=== PATIENT | female | born 1955 | race Hispanic/Latino ===

== ENCOUNTER → 2017-06-28 | Outpatient (CLI) | payer OTHER | END | disposition home or self-care (01) | LOC: RAH 08:58 | PROVIDERS: ATTEND Family Medicine | DX: Z12.31 Encounter for screening mammogram for malignant neoplasm of breast (principal) | CPT/HCPCS: 77067 ==

== ENCOUNTER → 2017-12-22 | Outpatient (CLI) | payer OTHER | END | disposition home or self-care (01) | LOC: OIH 13:25 | PROVIDERS: ATTEND Internal Medicine | DX: M19.012 Primary osteoarthritis, left shoulder (principal); M19.011 Primary osteoarthritis, right shoulder | CPT/HCPCS: 73030 ==

== ENCOUNTER 2017-12-29 19:37 | Emergency (ER) | payer OTHER ==
[2017-12-29] MEDS ORDERED: DiphenhydrAMINE HCL 50 MG/ML VIAL ONE (20:26)
[2017-12-29] MEDS ORDERED: SODIUM CHLORIDE 0.9% 1000ML 1,000 ML IV ONE (20:26)
[2017-12-29] MEDS ORDERED: ONDANSETRON HCL 4 MG/2 ML VIAL ONE (20:26)
[2017-12-29 20:33] LABS: EOSINOPHILS % (AUTO) 1.1 % (0.0-8.0); HEMATOCRIT 45.8 % (36-48); LYMPHOCYTES % (AUTO) 18.3 % (21.0-51.0); MEAN CORPUSCULAR HEMOGLOBIN 29.8 pg (27.0-33.0); MEAN CORPUSCULAR HGB CONC 34.7 g/dL (32.0-36.0); MEAN CORPUSCULAR VOLUME 85.9 fL (79-99); NEUTROPHILS % (AUTO) 72.6 % (40.0-77.0); NUCLEATED RED BLOOD CELLS 0.1 % (0.0-0.19); PLATELET COUNT (AUTO) 205 K/uL (130-400); RED BLOOD CELL COUNT(AUTO) 5.33 MIL/uL (4.00-5.50); RED CELL DISTRIBUTION WIDTH 14.3 % (11.0-15.5); WHITE BLOOD COUNT (AUTO) 8.3 K/uL (4.8-10.8)
[2017-12-29 20:42] LABS: POTASSIUM 3.5 mmol/L (3.5-5.1)
[2017-12-29 20:47] LABS: ALBUMIN 4.2 g/dL (3.5-5.0)
[2017-12-29 20:52] LABS: APPEARANCE,URINE Clear (CLEAR); BILIRUBIN,URINE Negative (NEGATIVE); COLOR,URINE Yellow (YELLOW); GLUCOSE, URINE (UA) 250 mg/dL (NEGATIVE); KETONES,URINE Trace mg/dL (NEGATIVE); LEUKOCYTE ESTERASE ,URINE Trace (NEGATIVE); NITRATE,URINE Negative (NEGATIVE); OCCULT BLOOD,URINE Negative (NEGATIVE); PH,URINE 6.5 (5.0-8.0); PROTEIN,URINE Negative (NEGATIVE)
[2017-12-29 21:01] LABS: BACTERIA,URINE Rare /HPF (None Seen); RBC,URINE 0-1 /HPF (0-1); SQUAMOUS EPITHELIAL CELL,UR Few /HPF (0-2)
[2017-12-29 21:02] LABS: MUCUS,URINE Rare LPF (None Seen); YEAST,URINE BUDDING Rare /HPF (None Seen)
[2017-12-29 21:03] LABS: HYALINE CASTS, URINE 0-1 /LPF (0-1 /LPF)
== END 2017-12-29 23:54 | disposition home or self-care (01) ==
LOC: EDH 19:37
DX: E86.9 Volume depletion, unspecified (principal); E87.6 Hypokalemia; H81.399 Other peripheral vertigo, unspecified ear; E11.9 Type 2 diabetes mellitus without complications; I10 Essential (primary) hypertension; E78.5 Hyperlipidemia, unspecified; Z90.49 Acquired absence of other specified parts of digestive tract; Z90.710 Acquired absence of both cervix and uterus; Z88.0 Allergy status to penicillin; Z88.8 Allergy status to other drugs, medicaments and biological substances
CPT/HCPCS: 36415; 80053; 81001; 84484; 85025; 93005; 96361; 96374; 96375; 99284; J1200; J2405; J7030

== ENCOUNTER → 2018-06-06 | Outpatient (CLI) | payer OTHER, MEDICARE ==
[~2018-06-06] MED LIST: REGADENOSON 0.4 MG/5 ML PF SYG IVP SCH
== END | disposition home or self-care (01) ==
LOC: RAH 08:53
PROVIDERS: ATTEND Family Medicine
DX: I11.0 Hypertensive heart disease with heart failure (principal); I42.9 Cardiomyopathy, unspecified; I50.9 Heart failure, unspecified
CPT/HCPCS: 78452; 93017; 96374; A9500 ×2; J2785

== ENCOUNTER → 2018-06-13 | Outpatient (CLI) | payer OTHER, MEDICARE | END | disposition home or self-care (01) | LOC: RAH 09:49 | PROVIDERS: ATTEND Family Medicine | DX: I10 Essential (primary) hypertension (principal); I42.9 Cardiomyopathy, unspecified | CPT/HCPCS: 71046; 93306 ==

== ENCOUNTER → 2018-06-29 | Outpatient (CLI) | payer OTHER, MEDICARE | END | disposition home or self-care (01) | LOC: RAH 08:18 | PROVIDERS: ATTEND Family Medicine | DX: Z12.31 Encounter for screening mammogram for malignant neoplasm of breast (principal) | CPT/HCPCS: 77067 ==

== ENCOUNTER → 2018-12-13 | Outpatient (CLI) | payer OTHER, MEDICARE ==
[~2018-12-13] MED LIST changes: +IOHEXOL-350 75 ML VIAL IV ONE; -REGADENOSON 0.4 MG/5 ML PF SYG IVP SCH
== END | disposition home or self-care (01) ==
LOC: RAH 09:48
PROVIDERS: ATTEND Family Medicine
DX: N28.1 Cyst of kidney, acquired (principal); N20.0 Calculus of kidney; M47.815 Spondylosis without myelopathy or radiculopathy, thoracolumbar region; Z80.51 Family history of malignant neoplasm of kidney
CPT/HCPCS: 74170; Q9967

== ENCOUNTER → 2019-07-24 | Outpatient (CLI) | payer OTHER, MEDICARE | END | disposition home or self-care (01) | LOC: RAH 15:04 | PROVIDERS: ATTEND Family Medicine | DX: Z12.31 Encounter for screening mammogram for malignant neoplasm of breast (principal); N64.89 Other specified disorders of breast | CPT/HCPCS: 77067 ==

== ENCOUNTER → 2019-08-12 | Outpatient (CLI) | payer OTHER, MEDICARE | END | disposition home or self-care (01) | LOC: RAH 07:31 | PROVIDERS: ATTEND Family Medicine | DX: N28.1 Cyst of kidney, acquired (principal); J98.11 Atelectasis; Z90.710 Acquired absence of both cervix and uterus; Z90.49 Acquired absence of other specified parts of digestive tract | CPT/HCPCS: 74178; Q9967 ==

== ENCOUNTER 2020-07-01 12:21 | Emergency (ER) | payer OTHER, MEDICARE ==
[2020-07-01 13:09] LABS: BASOPHILS % (AUTO) 0.4 % (0.0-5.0); EOSINOPHILS % (AUTO) 1.7 % (0.0-8.0); HEMATOCRIT 42.3 % (36-48); LYMPHOCYTES % (AUTO) 20.2 % (21.0-51.0); MEAN CORPUSCULAR HEMOGLOBIN 27.6 pg (27.0-33.0); MEAN CORPUSCULAR HGB CONC 32.9 g/dL (32.0-36.0); MEAN CORPUSCULAR VOLUME 84.1 fL (79-99); MONOCYTES % (AUTO) 7.8 % (3.0-13.0); NEUTROPHILS % (AUTO) 69.7 % (40.0-77.0); PLATELET COUNT (AUTO) 136 K/uL (130-400); RED BLOOD CELL COUNT(AUTO) 5.03 MIL/uL (4.00-5.50); RED CELL DISTRIBUTION WIDTH 12.9 % (11.0-15.5); WHITE BLOOD COUNT (AUTO) 5.4 K/uL (4.8-10.8)
[2020-07-01 13:22] LABS: CREATININE 0.9 mg/dL (0.5-1.5); POTASSIUM 4.2 mmol/L (3.5-5.1)
[2020-07-01 13:28] LABS: ALBUMIN 3.4 g/dL (3.5-5.0); BILIRUBIN,TOTAL 0.7 mg/dL (0.2-1.0); TOTAL PROTEIN, SERUM 6.6 g/dL (6.0-8.3)
[2020-07-01 13:35] LABS: B-TYPE NATRIURETIC PEPTIDE 497 pg/mL (0-100)
[2020-07-01 14:17] LABS: APPEARANCE,URINE Clear (CLEAR); BILIRUBIN,URINE Negative (NEGATIVE); COLOR,URINE Yellow (YELLOW); GLUCOSE, URINE (UA) 250 mg/dL (NEGATIVE); KETONES,URINE Negative (NEGATIVE); LEUKOCYTE ESTERASE ,URINE Negative (NEGATIVE); NITRATE,URINE Negative (NEGATIVE); OCCULT BLOOD,URINE Negative (NEGATIVE); PROTEIN,URINE Negative (NEGATIVE); UROBILINOGEN,URINE 0.2 mg/dL (0.2-1.0)
[2020-07-01] MEDS ORDERED: FUROSEMIDE 10 MG/ML 2ML VIAL ONE (15:20)
== END 2020-07-01 17:58 | disposition home or self-care (01) ==
LOC: EDH 12:21
DX: I11.0 Hypertensive heart disease with heart failure (principal); I50.9 Heart failure, unspecified; R06.00 Dyspnea, unspecified; E11.9 Type 2 diabetes mellitus without complications; E78.5 Hyperlipidemia, unspecified; Z86.73 Personal history of transient ischemic attack (TIA), and cerebral infarction without residual deficits; Z88.0 Allergy status to penicillin; Z88.6 Allergy status to analgesic agent
CPT/HCPCS: 36415; 71045; 80053; 81003; 82550; 83880; 84484; 85025; 85378; 93005; 96374; 99285; J1940

== ENCOUNTER → 2020-08-24 | Outpatient (CLI) | payer OTHER, MEDICARE | END | disposition home or self-care (01) | LOC: RAH 09:07 | PROVIDERS: ATTEND Family Medicine | DX: Z12.31 Encounter for screening mammogram for malignant neoplasm of breast (principal); Z00.01 Encounter for general adult medical examination with abnormal findings | CPT/HCPCS: 77067 ==

== ENCOUNTER 2021-04-22 07:15 | Day surgery (SDC) | payer OTHER, MEDICARE ==
[2021-04-20 13:27] VITALS: BP 148/72
[2021-04-20 14:42] LABS: BASOPHILS % (AUTO) 0.5 % (0.0-5.0); EOSINOPHILS % (AUTO) 1.7 % (0.0-8.0); HEMATOCRIT 44.8 % (36-48); LYMPHOCYTES % (AUTO) 12.4 % (21.0-51.0); MEAN CORPUSCULAR HEMOGLOBIN 27.8 pg (27.0-33.0); MEAN CORPUSCULAR HGB CONC 32.6 g/dL (32.0-36.0); MEAN CORPUSCULAR VOLUME 85.2 fL (79-99); MONOCYTES % (AUTO) 7.3 % (3.0-13.0); NEUTROPHILS % (AUTO) 77.6 % (40.0-77.0); PLATELET COUNT (AUTO) 131 K/uL (130-400); RED BLOOD CELL COUNT(AUTO) 5.26 MIL/uL (4.00-5.50); RED CELL DISTRIBUTION WIDTH 13.7 % (11.0-15.5); WHITE BLOOD COUNT (AUTO) 8.1 K/uL (4.8-10.8)
[2021-04-20 14:49] LABS: CREATININE 0.9 mg/dL (0.5-1.5); INR 1.02 (0.85-1.15); POTASSIUM 4.2 mmol/L (3.5-5.1); PROTHROMBIN TIME 11.1 SEC (9.6-11.6)
[2021-04-20 14:50] LABS: PARTIAL THROMBOPLASTIN TIME 27.2 SEC (26.3-35.5)
[2021-04-22] VITALS (8 sets, daily range): BP systolic 92–157; BP diastolic 59–86
[~2021-04-22] VITALS: Ht 162.6 cm; Wt 85.9 kg
[~2021-04-22 07:15] MED LIST changes: +0.9% NACL 500ML IV.SOLN 500 ML IV SCH; +ACET-2743 PO; +BACL10TA PO; +CARV12.511 PO; +CETI10TA57 PO; +CHOL100040 PO; +CYAN-52 PO; +DILTIAZEM 25MG INJ IVP SCH; +FENTANYL CITRATE PF 50 MCG/1 ML 2ML VIAL IVP SCH; +FLUT1BLS15 IH; +FURO40TA5 PO; +GLIM4TAB36 PO; +HYDR200T4 PO; +INSLAN SQ; -IOHEXOL-350 75 ML VIAL IV ONE; +METF750T46 PO; +MIDAZOLAM HCL 1 MG/ML 2ML VIAL IVP SCH; +MIDAZOLAM HCL 1 MG/ML 2ML VIAL IVPB SCH; +OLME40TA18 PO; +PRED10TA3 PO; +SEMA1PEN3 SQ; +VERAPAMIL HCL 2.5 MG/ML VIAL IVP SCH
[2021-04-22] MEDS ORDERED: METOPROLOL TARTRATE 1 MG/ML 5ML VIAL IV ONE (13:58)
[2021-04-22] MEDS ORDERED: OLME40TA18 PO (16:13)
[2021-04-22] MEDS ORDERED: CARV12.511 PO ×2 (16:13)
== END 2021-04-22 16:23 | disposition home or self-care (01) ==
LOC: DAH 07:15
PROVIDERS: ATTEND Internal Medicine Cardiovascular Disease
DX: I47.1 Supraventricular tachycardia (principal); Z20.822 Contact with and (suspected) exposure to COVID-19; I42.0 Dilated cardiomyopathy; I10 Essential (primary) hypertension; E11.9 Type 2 diabetes mellitus without complications; E78.5 Hyperlipidemia, unspecified; Z95.5 Presence of coronary angioplasty implant and graft; Z79.84 Long term (current) use of oral hypoglycemic drugs; Z79.899 Other long term (current) drug therapy; Z79.82 Long term (current) use of aspirin; Z83.3 Family history of diabetes mellitus; Z82.49 Family history of ischemic heart disease and other diseases of the circulatory system; Z90.49 Acquired absence of other specified parts of digestive tract; Z98.890 Other specified postprocedural states; Z90.710 Acquired absence of both cervix and uterus; Z98.891 History of uterine scar from previous surgery; Z88.8 Allergy status to other drugs, medicaments and biological substances; Z88.0 Allergy status to penicillin; Z79.01 Long term (current) use of anticoagulants; Z79.4 Long term (current) use of insulin
CPT/HCPCS: 36415; 80048; 82948; 85025; 85610; 85730; 87635; 93005 ×3; 96374; A4215; A4216; A4221; A4222; A4223 ×3; A4606; A4615; A4663; C9803; J2250; J3010; J3490

== ENCOUNTER → 2021-10-26 | Outpatient (CLI) | payer OTHER, MEDICARE ==
[~2021-10-26] MED LIST changes: -0.9% NACL 500ML IV.SOLN 500 ML IV SCH; -DILTIAZEM 25MG INJ IVP SCH; -FENTANYL CITRATE PF 50 MCG/1 ML 2ML VIAL IVP SCH; -MIDAZOLAM HCL 1 MG/ML 2ML VIAL IVP SCH; -MIDAZOLAM HCL 1 MG/ML 2ML VIAL IVPB SCH; -VERAPAMIL HCL 2.5 MG/ML VIAL IVP SCH
== END | disposition home or self-care (01) ==
LOC: OIH 08:38
PROVIDERS: ATTEND Internal Medicine Cardiovascular Disease
DX: I42.8 Other cardiomyopathies (principal); I50.22 Chronic systolic (congestive) heart failure
CPT/HCPCS: 93306

== ENCOUNTER 2021-11-20 14:11 | Emergency (ER) | payer OTHER, MEDICARE ==
[~2021-11-20] VITALS: Ht 162.6 cm; Wt 87.1 kg
[2021-11-20] MEDS ORDERED: 0.9%NACL 1000ML 1,000 ML IV ONE (14:30)
[2021-11-20] MEDS ORDERED: ONDANSETRON 4MG INJ IVP ONE (14:30)
[2021-11-20 14:46] LABS: BASOPHILS % (AUTO) 0.4 % (0.0-5.0); EOSINOPHILS % (AUTO) 1.2 % (0.0-8.0); HEMATOCRIT 37.9 % (36-48); LYMPHOCYTES % (AUTO) 13.3 % (21.0-51.0); MEAN CORPUSCULAR HEMOGLOBIN 29.3 pg (27.0-33.0); MEAN CORPUSCULAR HGB CONC 34.6 g/dL (32.0-36.0); MEAN CORPUSCULAR VOLUME 84.8 fL (79-99); MONOCYTES % (AUTO) 6.9 % (3.0-13.0); NEUTROPHILS % (AUTO) 77.9 % (40.0-77.0); PLATELET COUNT (AUTO) 167 K/uL (130-400); RED BLOOD CELL COUNT(AUTO) 4.47 MIL/uL (4.00-5.50); RED CELL DISTRIBUTION WIDTH 12.5 % (11.0-15.5); WHITE BLOOD COUNT (AUTO) 7.2 K/uL (4.8-10.8)
[2021-11-20 14:56] LABS: CREATININE 1.1 mg/dL (0.5-1.5); POTASSIUM 4.5 mmol/L (3.5-5.1)
[2021-11-20 15:03] LABS: ALBUMIN 3.3 g/dL (3.5-5.0); TOTAL PROTEIN, SERUM 6.7 g/dL (6.0-8.3)
[2021-11-20 15:29] LABS: APPEARANCE,URINE CLEAR (CLEAR); BILIRUBIN,URINE NEGATIVE (NEGATIVE); COLOR,URINE COLORLESS (YELLOW); GLUCOSE, URINE (UA) >=1000 mg/dL (NEGATIVE); KETONES,URINE NEGATIVE (NEGATIVE); LEUKOCYTE ESTERASE ,URINE NEGATIVE Leu/uL (NEGATIVE); NITRATE,URINE NEGATIVE (NEGATIVE); OCCULT BLOOD,URINE NEGATIVE (NEGATIVE); PH,URINE 6.5 (5.0-8.0); PROTEIN,URINE NEGATIVE (NEGATIVE); UROBILINOGEN,URINE 0.2 mg/dL (0.2-1.0)
[2021-11-20 16:03] LABS: BACTERIA,URINE RARE /HPF (None Seen); MUCUS,URINE RARE LPF (None Seen); RBC,URINE 0-1 /HPF (0-1); SQUAMOUS EPITHELIAL CELL,UR RARE /HPF (0-2); WBC,URINE 0-1 /HPF (0-1)
[2021-11-20] MEDS ORDERED: LEVOFLOXACIN 750 MG/D5W 150 ML 150 ML ONE (16:06)
[2021-11-20 16:20] VITALS: BP 118/59
[2021-11-20] MEDS ORDERED: METOCLOPRAMIDE 10 MG/2 ML VIAL ONE (16:52)
[2021-11-20] MEDS ORDERED: METOCLOPRAMIDE 10 MG/2 ML VIAL IVP ONE (17:00)
[2021-11-20] MEDS ORDERED: CIPR500T10 PO (17:59)
[2021-11-20] MEDS ORDERED: METO10TA41 PO (17:59)
[2021-11-21] MEDS ORDERED: LEVOFLOXACIN 750 MG/D5W 150 ML 150 ML IV SCH (09:00)
== END 2021-11-20 18:21 | disposition home or self-care (01) ==
LOC: EDH 14:11
DX: R19.7 Diarrhea, unspecified (principal); R11.2 Nausea with vomiting, unspecified; E86.0 Dehydration; M19.90 Unspecified osteoarthritis, unspecified site; E11.9 Type 2 diabetes mellitus without complications; I10 Essential (primary) hypertension; M81.0 Age-related osteoporosis without current pathological fracture; Z88.0 Allergy status to penicillin; Z88.6 Allergy status to analgesic agent; Z88.8 Allergy status to other drugs, medicaments and biological substances; Z79.899 Other long term (current) drug therapy; Z79.4 Long term (current) use of insulin; Z79.84 Long term (current) use of oral hypoglycemic drugs; Z90.49 Acquired absence of other specified parts of digestive tract; Z98.890 Other specified postprocedural states
CPT/HCPCS: 99284; 96365; 96375; 83735; 84484; 80053; 83690; 85025; 81001; 36415; 93005; J1956; J7030; J2405; J2765

== ENCOUNTER 2021-11-22 13:50 | Emergency (ER) | payer OTHER, MEDICARE ==
[~2021-11-22] VITALS: Ht 162.6 cm; Wt 87.1 kg
[~2021-11-22 13:50] MED LIST changes: +CIPR500T10 PO; +METO10TA41 PO
[2021-11-22 14:21] LABS: BASOPHILS % (AUTO) 0.2 % (0.0-5.0); HEMATOCRIT 38.5 % (36-48); LYMPHOCYTES % (AUTO) 10.4 % (21.0-51.0); MEAN CORPUSCULAR HEMOGLOBIN 29.7 pg (27.0-33.0); MEAN CORPUSCULAR HGB CONC 34.8 g/dL (32.0-36.0); MEAN CORPUSCULAR VOLUME 85.4 fL (79-99); MONOCYTES % (AUTO) 4.6 % (3.0-13.0); NEUTROPHILS % (AUTO) 84.3 % (40.0-77.0); PLATELET COUNT (AUTO) 169 K/uL (130-400); RED BLOOD CELL COUNT(AUTO) 4.51 MIL/uL (4.00-5.50); RED CELL DISTRIBUTION WIDTH 12.5 % (11.0-15.5); WHITE BLOOD COUNT (AUTO) 9.1 K/uL (4.8-10.8)
[2021-11-22 14:32] LABS: CREATININE 1.1 mg/dL (0.5-1.5); POTASSIUM 4.1 mmol/L (3.5-5.1)
[2021-11-22 14:36] LABS: ALBUMIN 3.6 g/dL (3.5-5.0); TOTAL PROTEIN, SERUM 7.2 g/dL (6.0-8.3)
[2021-11-22] MEDS ORDERED: ONDANSETRON 4MG INJ IVP ONE (15:00)
[2021-11-22] MEDS ORDERED: 0.9%NACL 1000ML 1,000 ML IV ONE (15:00)
[2021-11-22 15:17] LABS: APPEARANCE,URINE CLEAR (CLEAR); BILIRUBIN,URINE NEGATIVE (NEGATIVE); COLOR,URINE YELLOW (YELLOW); GLUCOSE, URINE (UA) >=1000 mg/dL (NEGATIVE); KETONES,URINE 150 mg/dL (NEGATIVE); LEUKOCYTE ESTERASE ,URINE NEGATIVE Leu/uL (NEGATIVE); NITRATE,URINE NEGATIVE (NEGATIVE); OCCULT BLOOD,URINE NEGATIVE (NEGATIVE); PH,URINE 5.5 (5.0-8.0); PROTEIN,URINE 20 mg/dL (NEGATIVE); UROBILINOGEN,URINE 0.2 mg/dL (0.2-1.0)
[2021-11-22 15:27] LABS: BACTERIA,URINE MOD /HPF (None Seen); MUCUS,URINE RARE LPF (None Seen); SQUAMOUS EPITHELIAL CELL,UR FEW /HPF (0-2); YEAST,URINE BUDDING FEW /HPF (None Seen)
[2021-11-22] MEDS ORDERED: IOHEXOL 350 MG/ML 100ML INFUS..BTL IV ONE (15:36)
[2021-11-22] MEDS ORDERED: LEVOFLOXACIN 500 MG/D5W 100 ML 100 ML IV SCH (17:30)
[2021-11-22 18:43] VITALS: BP 164/78
== END 2021-11-22 18:43 | disposition home or self-care (01) ==
LOC: EDH 13:50
DX: E86.0 Dehydration (principal); R19.7 Diarrhea, unspecified; R11.2 Nausea with vomiting, unspecified; R10.9 Unspecified abdominal pain; E11.9 Type 2 diabetes mellitus without complications; I10 Essential (primary) hypertension; M19.90 Unspecified osteoarthritis, unspecified site; Z79.4 Long term (current) use of insulin; Z79.52 Long term (current) use of systemic steroids; Z88.0 Allergy status to penicillin; Z88.6 Allergy status to analgesic agent; Z88.8 Allergy status to other drugs, medicaments and biological substances; Z90.49 Acquired absence of other specified parts of digestive tract
CPT/HCPCS: 70450; 99285; 96365; 96361; 96375; 80053; 85025; 81001; 36415; 74177; J1956; J2405; Q9967

== ENCOUNTER → 2022-06-14 | Outpatient (CLI) | payer OTHER, MEDICARE ==
[~2022-06-14] MED LIST changes: -CIPR500T10 PO; -PRED10TA3 PO; +SACU1TAB7 PO
[2022-06-14 16:46] LABS: ALBUMIN 3.9 g/dL (3.5-5.0); CREATININE 1.1 mg/dL (0.5-1.5); POTASSIUM 4.4 mmol/L (3.5-5.1); TOTAL PROTEIN, SERUM 7.3 g/dL (6.0-8.3)
== END | disposition home or self-care (01) ==
LOC: LAB 13:38
PROVIDERS: ATTEND Internal Medicine Cardiovascular Disease
DX: I42.8 Other cardiomyopathies (principal)
CPT/HCPCS: 36415; 80053; 83880

== ENCOUNTER → 2022-07-27 | Outpatient (CLI) | payer OTHER, MEDICARE ==
[~2022-07-27] MED LIST changes: -HYDR200T4 PO; +HYDR200T75 PO
== END | disposition home or self-care (01) ==
LOC: SHCH 09:19
PROVIDERS: ATTEND Internal Medicine Cardiovascular Disease
DX: I11.9 Hypertensive heart disease without heart failure (principal); E11.9 Type 2 diabetes mellitus without complications; E78.5 Hyperlipidemia, unspecified
CPT/HCPCS: 93306

== ENCOUNTER → 2022-11-25 | Outpatient (CLI) | payer OTHER, MEDICARE ==
[~2022-11-25] MED LIST changes: -ACET-2743 PO; +ATOR20TA65 PO; +CALC-866 PO; -CARV12.511 PO; +CARV6.25 PO; -CHOL100040 PO; +DAPA10TA PO; -FURO40TA5 PO; -GLIM4TAB36 PO; +MECL-302 PO; -METO10TA41 PO; -OLME40TA18 PO; +ONDA4TAB10 PO; -SACU1TAB7 PO; +SPIR25TA PO
== END | disposition home or self-care (01) ==
LOC: RAH 09:41
PROVIDERS: ATTEND Family Medicine
DX: Z12.31 Encounter for screening mammogram for malignant neoplasm of breast (principal)
CPT/HCPCS: 77067

== ENCOUNTER → 2023-06-20 | Outpatient (CLI) | payer OTHER, MEDICARE | END | disposition home or self-care (01) | LOC: RAH 12:51 | PROVIDERS: ATTEND Urology | DX: N20.1 Calculus of ureter (principal); N28.89 Other specified disorders of kidney and ureter; Z90.49 Acquired absence of other specified parts of digestive tract | CPT/HCPCS: 74150 ==

== ENCOUNTER 2024-02-06 13:55 | Emergency (ER) | payer OTHER, MEDICARE ==
[~2024-02-06] VITALS: Ht 162.6 cm; Wt 99.3 kg
[~2024-02-06 13:55] MED LIST changes: +ONDA-243 PO; -ONDA4TAB10 PO
--- NOTE | 2024-02-06 14:12 | ERN ---
ED Note History of Present Illness Stated Complaint: ABD PAIN, VOMITING Chief Complaint: Abdominal Pain Time Seen by MD: 14:02 Dictation: PATIENT IS A 68-YEAR-OLD DIABETIC FEMALE COMING IN VIA EMS WITH COMPLAINTS OF DIFFUSE ABDOMINAL PAIN NAUSEA VOMITING ONSET THIS MORNING. SHE DENIES FEVER CHILLS CHANGES IN URINATION. SHE STATES SHE DOES NOT SURE WHAT HER BLOOD SUGAR HAS BEEN RUNNING BECAUSE HER MONITOR HIS BROKEN. NO CHEST PAIN NO BACK PAIN NO SOB. Allergies: Coded Allergies: Penicillins (Unverified Allergy, Unknown, 06/06/18) aspirin (Unverified Allergy, Unknown, 06/06/18) gabapentin (Unverified Allergy, Unknown, 06/06/18) niacin (Unverified Allergy, Unknown, 06/06/18) Home Meds Active Scripts Ondansetron (Ondansetron Odt) 4 Mg Tab.rapdis, 4 MG PO Q6HPRN PRN for nausea, #16 TAB 0 Refills Prov:JACKELYN FU NP 02/06/24 Reported Medications Insulin Glargine,Hum.rec.anlog (Lantus) 100 Units/Ml Inj, 70 UNITS SQ DAILY, ML 08/30/22 Cholecalciferol (Vitamin D3) (Vitamin D3) 125 Mcg Tablet, 125 MCG PO QWEEK, TAB 08/30/22 Spironolactone (Aldactone) 25 Mg Tablet, 25 MG PO DAILY, TAB 08/30/22 Meclizine HCl (Meclizine HCl) 25 Mg Tablet, 25 MG PO DAILY, TAB 08/30/22 Ondansetron (Ondansetron Odt) 4 Mg Tab.rapdis, 4 MG PO TIDP PRN for NAUSEA, TAB 08/30/22 Atorvastatin Calcium (Atorvastatin Calcium) 20 Mg Tablet, 20 MG PO DAILY, TAB 08/30/22 Baclofen (Baclofen) 10 Mg Tablet, 10 MG PO BID, TAB 08/30/22 Carvedilol (Carvedilol) 6.25 Mg Tablet, 6.25 MG PO BID, TAB 08/30/22 Dapagliflozin Propanediol (Farxiga) 10 Mg Tablet, 10 MG PO DAILY, TAB 08/30/22 Hydroxychloroquine Sulfate (Hydroxychloroquine Sulfate) 200 Mg Tablet, 200 MG PO HS, TAB 04/21/21 Cetirizine HCl (Cetirizine HCl) 10 Mg Tablet, 10 MG PO DAILY, TAB 04/21/21 Metformin HCl (Metformin HCl ER) 750 Mg Tab.er.24h, 750 MG PO HS, TAB 04/21/21 Semaglutide (Ozempic) 1 Mg/0.75 Ml Pen.injctr, 1 MG SQ QWEEK ON Thursdays04/21/21 Fluticasone/Umeclidin/Vilanter (Trelegy Ellipta 200-62.5-25) 1 Each Blst.w.dev, 1 EACH IH DAILY 04/21/21 Cyanocobalamin (Vitamin B-12) (Vitamin B-12) 1,000 Mcg Tablet, 1000 MCG PO DAILY, TAB 04/21/21 Past Medical History Past Medical History: Diabetes-Type II, High Cholesterol, Hypertension Additional Past Medical Hx: VERTIGO Surgical History: Cholecystectomy, Social History: Negative, Lives alone History: Not Applicable RN Note Reviewed/Agreed w/PFSH: Yes Review of System Dictation CONSTITUTIONAL: NEGATIVE EXCEPT FOR HPI HEAD/FACE: NEGATIVE EXCEPT FOR HPI EENT: NEGATIVE EXCEPT FOR HPI RESPIRATORY: NEGATIVE EXCEPT FOR HPI GASTROINTESTINAL/ABDOMINAL: NEGATIVE EXCEPT FOR HPI DIFFUSE ABDOMINAL PAIN WITH NAUSEA VOMITING GENITOURINARY: NEGATIVE EXCEPT FOR HPI MUSCULOSKELETAL: NEGATIVE EXCEPT FOR HPI INTEGUMENTARY: NEGATIVE EXCEPT FOR HPI NEUROLOGICAL/PSYCH: NEGATIVE EXCEPT FOR HPI HEMATOLOGIC/LYMPHATIC: NEGATIVE EXCEPT FOR HPI ALL SYSTEMS NEGATIVE, EXCEPT NOTED ABOVE. 13 POINT REVIEW OF SYSTEMS ASSESSED AND ALL NEGATIVE EXCEPT FOR ABOVE. Initial Vital Sign VS Vital Signs Date Time Temp Pulse Resp B/P (MAP) Pulse Ox O2 Delivery O2 Flow Rate FiO2 02/06/24 13:57 Room Air 02/06/24 13:59 98.4 88 16 209/91 95 0 21 Physical Exam Dictation VITAL SIGNS REVIEWED GENERAL APPEARANCE: ALERT, ORIENTED X 3, MORBIDLY OBESE, VERY DEBILITATED AND APPEARS VERY WEAK. HEAD AND FACE: NON-TRAUMATIC. EYES: PERRL, PINK CONJUNCTIVAS, EYELID NO TRAUMA, ANTERIOR CHAMBER WITH ARCUS SENILIS. EARS: PINNAS INTACT AND NO SIGNS OF TRAUMA OR ERYTHEMA EAR CANALS CLEAR AND NO DISCHARGE TM NO ERYTHEMA NOSE: NO DISCHARGE, NO BLEEDING. OROPHARYNX: MOUTH NORMAL, TONGUE PINK, PHARYNX CLEAR,NO ERYTHEMA, TONSILS NO EXUDATES, NO ABSCESSES NOTED, MUCOUS MEMBRANE MOIST NECK: SUPPLE, NON-TENDER, NO THYROMEGALY, NO MASSES, NO JVD, NO BRUITS BREAST:DEFERRED CHEST:NO TENDERNESS, NO CREPITUS, NO PARADOXICAL MOVEMENT, NO RETRACTIONS LUNGS:CLEAR, WELL-VENTILATED, SYMMETRIC, NO RALES, NO WHEEZING, NO RHONCHI, NO STRIDOR, GOOD BREATH SOUNDS BILATERALLY HEART: REGULAR RATE, REGULAR RHYTHM, NO MURMUR, NO GALLOPS VASCULAR: NO PERIPHERAL EDEMA, ABDOMEN: SOFT, POSITIVE BOWEL SOUNDS, NONDISTENDED, NO GUARDING, NONTENDER, NO REBOUND, NO MASSES NO HEPATOMEGALY, NO SPLENOMEGALY, NO MENDEZ'S SIGN, NO HERNIAS. NO FOCAL TENDERNESS RECTAL: DEFERRED GENITAL: DEFERRED NEUROLOGICAL: NORMAL SPEECH, MOTOR FUNCTION INTACT, SENSORY FUNCTION INTACT 4/+5 STRENGTH TO ALL EXTREMITIES MUSCULOSKELETAL: NECK NONTENDER, FULL RANGE OF MOTION, BACK NONTENDER, FULL RA NGE OF MOTION, EXTREMITIES: NONTENDER, FULL RANGE OF MOTION SKIN: COLOR PINK, DRY, NO TURGOR, NO RASH, NO LACERATIONS, NO ABRASIONS, NO CONTUSIONS. LYMPHATIC: DEFERRED Results (Laboratory/Radiology) Laboratory/Radiology Laboratory Tests Test 02/06/24 14:18 02/06/24 14:26 Urine Color LIGHT-YELLOW (YELLOW) Urine Appearance CLEAR (CLEAR) Urine pH 6.5 (5.0-8.0) Urine Specific [place] 1.013 (1.001-1.031) Urine Protein NEGATIVE mg/dL (NEGATIVE) Urine Glucose (UA) NEGATIVE mg/dL (NEGATIVE) Urine Ketones NEGATIVE mg/dL (NEGATIVE) Urine Occult Blood NEGATIVE (NEGATIVE) Urine Nitrate NEGATIVE (NEGATIVE) Urine Bilirubin NEGATIVE mg/dL (NEGATIVE) Urine Urobilinogen 0.2 mg/dL (0.2-1.0) Urine Leukocyte Esterase NEGATIVE Thelma/uL White Blood Count 8.3 K/uL (4.8-10.8) Red Blood Count 4.36 MIL/uL (4.00-5.50) Hemoglobin 13.0 g/dL (12.0-16.0) Hematocrit 38.4 % (36-48) Mean Corpuscular Volume 88.1 fL (79-99) Mean Corpuscular Hemoglobin 29.8 pg (27.0-33.0) Mean Corpuscular Hemoglobin Concent 33.9 g/dL (32.0-36.0) Red Cell Distribution Width 13.0 % (11.0-15.5) Platelet Count 143 K/uL (130-400) Mean Platelet Volume 9.5 fL (7.5-10.5) Immature Granulocyte % (Auto) 0.7 % (0-1) Neutrophils (%) (Auto) 80.7 % (40.0-77.0) H Lymphocytes (%) (Auto) 11.1 % (21.0-51.0) L Monocytes (%) (Auto) 5.8 % (3.0-13.0) Eosinophils (%) (Auto) 1.3 % (0.0-8.0) Basophils (%) (Auto) 0.4 % (0.0-5.0) Neutrophils # (Auto) 6.7 K/uL (1.8-7.7) Lymphocytes # (Auto) 0.9 K/uL (1.0-4.8) L Monocytes # (Auto) 0.5 K/uL (0.1-1.0) Eosinophils # (Auto) 0.11 K/uL (0.00-0.70) Basophils # (Auto) 0.03 K/uL (0.00-0.20) Absolute Immature Granulocyte (auto 0.06 K/uL (0-1) Nucleated Red Blood Cells 0.0 % (0.0-0.19) Sodium Level 144 mmol/L (136-145) Potassium Level 4.2 mmol/L (3.5-5.1) Chloride Level 106 mmol/L (101-111) Carbon Dioxide Level 31 mmol/L (21-32) Blood Urea Nitrogen 13 mg/dL (7-18) Creatinine 0.9 mg/dL (0.5-1.0) Glomerular Filtration Rate Calc 71 mL/min (>90) Random Glucose 116 mg/dL (70-105) H Total Calcium 9.0 mg/dL (8.5-10.1) Troponin I High Sensitivity 9 ng/L (4-50) Exam: NONCONTRAST CT BRAIN REASON: MILD LEFT FACIAL WEAKNESS. COMPARISON: None. TECHNIQUE: Images are obtained from vertex to the skull base. The exam was performed without IV contrast. FINDINGS: There is normal appearing brain parenchyma. There are no focal mass lesions. There is is no evidence of intracranial hemorrhage or acute stroke. Ventricles and sulci appear normal. Posterior fossa and brainstem structures are unremarkable. Paranasal sinuses and remaining extracranial soft tissues appear normal as well. IMPRESSION: 1. Normal noncontrast CT brai Labs Reviewed?: Yes EKG Comment: EKG IS SINUS RHYTHM/HEART RATE 88/0 CHANGES IN LEADS TWO AND THREE, AXIS NORMAL ED Course ED Course Orders Procedure Category Date Status Time Nurse Driven Whit PANTOJA 02/06/24 In Process Removal Pro 14:09 Cbc With Differential LAB 02/06/24 Complete 14:09 Troponin I High LAB 02/06/24 Complete Sensitivity 14:09 Urinalysis Profile LAB 02/06/24 Complete 14:09 12 Lead Ekg Tracing- EKG 02/06/24 Logged Technical 14:09 0.9%Nacl 1000ml (Ns PHA 02/06/24 Complete 1000ml) 14:30 Ondansetron 4mg Inj PHA 02/06/24 Complete (Zofran 4mg Inj) 14:30 Basic Metabolic Panel LAB 02/06/24 Complete 14:09 Ct Head/Brain W/O CT 02/06/24 Resulted Contrast 16:02 Current Medications Medications (Trade) Dose Ordered Sig/Oliva Route PRN Reason Start Time Stop Time Status Last Admin Dose Admin Ondansetron HCl (zoFRAN 4MG INJ) 4 mg ONCE ONCE IVP 02/06/24 14:30 02/06/24 14:31 DC 02/06/24 14:32 Sodium Chloride 1,000 ml @ 0 mls/hr ONCE ONCE IV 02/06/24 14:30 02/06/24 14:31 DC 02/06/24 14:32 Vital Signs Date Time Temp Pulse Resp B/P (MAP) Pulse Ox O2 Delivery O2 Flow Rate FiO2 02/06/24 14:06 97.7 87 16 195/66 97 Room Air* 0 21 02/06/24 13:59 98.4 88 16 209/91 95 Room Air* 0 21 02/06/24 13:57 Room Air ONE THOUSAND SE[employer] HUNDRED, PATIENT IS NEUROLOGICALLY INTACT, HEMODYNAMICALLY STABLE. STATES SHE FEELS MARKEDLY IMPROVED AFTER TREATMENT WITH FLUIDS AND ZOFRAN. DAUGHTER WAS REASSURED THAT THERE WAS NO STROKE, SHE HAD REQUESTED A CT AT 16:30 BECAUSE SHE SAID SHE THOUGHT SHE SAW A LEFT FACIAL DROOP ON HER MOTHER THAT STARTED YESTERDAY. Medical Decision Making MDM MDM: DIFFERENTIAL DIAGNOSIS: UNCONTROLLED DIABETES/DKA/ELECTROLYTE IMBALANCE/DEHYDRATION/UTI/ACS/AMI/CVA RATIONALE: TESTS CONSIDERED AND ORDERED SECONDARY TO SHARED DECISION MAKING INCLUDE: RADIOLOGY/LABS/EKG PREVIOUS OUTSIDE RECORDS REVIEWED: OLD ER VISITS. SEE NURSE'S NOTES RISK OF COMPLICATION AND/OR MORBIDITY OR MORTALITY OF PATIENT MANAGEMENT: NONE MEDICATIONS-PER MEDICATION RECONCILIATION NEED FOR HOSPITALIZATION: PATIENT DOES NOT MEET CRITERIA FOR HOSPITALIZATION. NO NEED FOR EMERGENCY MAJOR/MINOR SURGERY: NO THERE ARE NO SOCIAL CONCERNS WITH THIS PATIENT. PRESCRIPTION DRUG MANAGEMENT ZOFRAN PRESCRIPTIONS WILL INCLUDE SYMPTOMATIC CARE PATIENT'S PRIOR EXTERNAL MEDICAL RECORDS FROM OTHER ER VISITS WERE REVIEWED BY ME INDICATED. PRIOR TESTING AND RESULTS FROM PREVIOUS VISITS WERE REVIEWED. PRIOR TESTS WERE TAKEN INTO ACCOUNT WITH MEDICAL DECISION MAKING AND RESOURCE UTILIZATION, INDEPENDENT HISTORIAN/HISTORIANS WERE USED TO OBTAIN COMPLETE MEDICAL HISTORY. I INDEPENDENTLY INTERPRETED THE TEST THAT WERE PERFORMED, RESULTS WERE REVIEWED BY ME AND CONSIDERED FINDINGS ON RADIOLOGY IF ORDERED. MEDICAL MANAGEMENT AND EXAMINATION INTERPRETATION DISCUSSIONS WERE HAD BY ME WITH OTHER QUALIFIED HEALTHCARE PROFESSIONALS INDICATED FOR THE PATIENT'S CARE. DX & DISP Disposition: Discharge Departure Impression: Primary Impression: Viral gastroenteritis Additional Impressions: Nausea & vomiting, Weakness Condition: Stable Scripts Ondansetron (Ondansetron Odt) 4 Mg Tab.rapdis 4 MG PO Q6HPRN PRN for nausea, #16 TAB 0 Refills Prov: JACKELYN FU EMERGENCY VETERINARY TECHNICIAN 02/06/24 Additional Instructions: FOLLOW-UP WITH PRIMARY CARE PROVIDER IN 1 TO 2 DAYS. TAKE MEDICATIONS DIRECTED HERE IN THE EMERGENCY ROOM. OKAY TO CONTINUE HOME MEDICATIONS UNLESS OTHERWISE DISCUSSED DURING YOUR VISIT IN THE EMERGENCY ROOM TODAY. RETURN TO YOUR NEAREST EMERGENCY ROOM IF SYMPTOMS WORSEN OR IF THERE IS NO IMPROVEMENT. CALL 911 IF YOU NEED IMMEDIATE ASSISTANCE. TAKE TYLENOL OR MOTRIN [id number] NEEDED AND IF NO CONTRAINDICATIONS ARE PRESENT. INCREASE ORAL HYDRATION. A WOUND CULTURE OR URINE CULTURE WAS ORDERED HERE IN THE EMERGENCY ROOM DEPARTMENT PLEASE FOLLOW-UP WITH PRIMARY CARE PROVIDER AND ADVISE THEM TO GET REPEAT PORTS FROM OUR FACILITY. IF YOU HAD ANY DARREN WRAP/SPLINTS THAT WERE APPLIED HERE, PLEASE DO NOT REMOVE THEM UNTIL YOU SEE YOUR PRIMARY CARE OR SPECIALTY. INCREASE YOUR FLUID INTAKE. SUGGEST CLEAR LIQUID DIET FOR12 HOURS AND THEN ADVANCE DIET SLOWLY TO REGULAR. SEE YOUR PRIMARY CARE DOCTOR FOR FOLLOW UP IN 1-2 DAYS. Referrals: ANAMIKA DENNIS MD (PCP) Time of Disposition: 17:03 I have reviewed the case, and I agree with, Diagnosis and Plan JACKELYN FU NP Feb 06, 2024 14:12
[2024-02-06] MEDS: ondanSETRON 4MG INJ IVP ONE (14:32)
[2024-02-06] MEDS: 0.9%NACL 1000ML 1,000 ML IV ONE (14:32)
[2024-02-06 14:34] LABS: BASOPHILS # (AUTO) 0.03 K/uL (0.00-0.20); BASOPHILS % (AUTO) 0.4 % (0.0-5.0); EOSINOPHILS # (AUTO) 0.11 K/uL (0.00-0.70); EOSINOPHILS % (AUTO) 1.3 % (0.0-8.0); HEMATOCRIT 38.4 % (36-48); IMMATURE GRANULOCYTE ABSOLUTE 0.06 K/uL (0-1); LYMPHOCYTES # (AUTO) 0.9 K/uL (1.0-4.8); LYMPHOCYTES % (AUTO) 11.1 % (21.0-51.0); MEAN CORPUSCULAR HEMOGLOBIN 29.8 pg (27.0-33.0); MEAN CORPUSCULAR HGB CONC 33.9 g/dL (32.0-36.0); MEAN CORPUSCULAR VOLUME 88.1 fL (79-99); MONOCYTES # (AUTO) 0.5 K/uL (0.1-1.0); MONOCYTES % (AUTO) 5.8 % (3.0-13.0); NEUTROPHILS # (AUTO) 6.7 K/uL (1.8-7.7); NEUTROPHILS % (AUTO) 80.7 % (40.0-77.0); PLATELET COUNT (AUTO) 143 K/uL (130-400); RED BLOOD CELL COUNT(AUTO) 4.36 MIL/uL (4.00-5.50); WHITE BLOOD COUNT (AUTO) 8.3 K/uL (4.8-10.8)
[2024-02-06 14:55] LABS: CREATININE 0.9 mg/dL (0.5-1.0); POTASSIUM 4.2 mmol/L (3.5-5.1)
[2024-02-06 15:13] LABS: APPEARANCE,URINE CLEAR (CLEAR); BILIRUBIN,URINE NEGATIVE (NEGATIVE); COLOR,URINE LIGHT-YELLOW (YELLOW); GLUCOSE, URINE (UA) NEGATIVE (NEGATIVE); KETONES,URINE NEGATIVE (NEGATIVE); LEUKOCYTE ESTERASE ,URINE NEGATIVE Leu/uL (NEGATIVE); NITRATE,URINE NEGATIVE (NEGATIVE); OCCULT BLOOD,URINE NEGATIVE (NEGATIVE); PH,URINE 6.5 (5.0-8.0); PROTEIN,URINE NEGATIVE (NEGATIVE); UROBILINOGEN,URINE 0.2 mg/dL (0.2-1.0)
[2024-02-06 15:15] LABS: ADD UA MICROSCOPIC NO
--- NOTE | 2024-02-06 16:39 | HMCIMG ---
Exam: NONCONTRAST CT BRAIN REASON: MILD LEFT FACIAL WEAKNESS. COMPARISON: None. TECHNIQUE: Images are obtained from vertex to the skull base. The exam was performed without IV contrast. FINDINGS: There is normal appearing brain parenchyma. There are no focal mass lesions. There is is no evidence of intracranial hemorrhage or acute stroke. Ventricles and sulci appear normal. Posterior fossa and brainstem structures are unremarkable. Paranasal sinuses and remaining extracranial soft tissues appear normal as well. IMPRESSION: 1. Normal noncontrast CT brain. CT was performed with one or more following dose reduction techniques: automated exposure control, adjustment of the mA and kv according to patient's size, or use of a iterative reconstruction technique.
[2024-02-06] MEDS ORDERED: ONDA-243 PO (17:03)
[2024-02-06 17:33] VITALS: BP 165/74; PULSE 82; RESP 16; TEMP 97.7; O2SAT 99
--- NOTE | 2024-02-06 17:34 | NUR ---
HERNANDEZ CATHETER REMOVED AT THIS TIME FOR PT DISCHARGE.
--- NOTE | 2024-02-07 05:03 | EKG ---
[facility] Test Date: 2024-02-06 Test Time: 14:24:56 Pat Name: ERIC HIGH Department: ED Room: Gender: F [address] Reporter: [id number] : 1955 Requested By: JACKELYN FU Order Number: [id number] Reading MD: Jefferson Collins Measurements Intervals Pitman Rate: 88 P: 24 GA: 150 QRS: -19 QRSD: 92 T: 6 QT: 386 QTc: 467 Interpretive Statements Sinus rhythm Possible Inferior infarct, old Compared to ECG 12/19/2021 23:20:32 Myocardial infarct finding now present Sinus tachycardia no longer present Short GA interval no longer present T-wave abnormality no longer present Electronically Signed On 02-07-2024 18:38:57 RUBBER COMPOUNDER by Jefferson Collins Please click the below link to view image of tracing.
== END 2024-02-06 17:42 | disposition home or self-care (01) ==
LOC: EDH 13:55
DX: A08.4 Viral intestinal infection, unspecified (principal); R11.2 Nausea with vomiting, unspecified; R53.1 Weakness; E11.9 Type 2 diabetes mellitus without complications; E78.00 Pure hypercholesterolemia, unspecified; I10 Essential (primary) hypertension; Z79.4 Long term (current) use of insulin; Z79.84 Long term (current) use of oral hypoglycemic drugs; Z79.85 Long-term (current) use of injectable non-insulin antidiabetic drugs; Z79.899 Other long term (current) drug therapy; Z88.0 Allergy status to penicillin; Z88.6 Allergy status to analgesic agent; Z88.8 Allergy status to other drugs, medicaments and biological substances; Z90.49 Acquired absence of other specified parts of digestive tract
CPT/HCPCS: 99285; 96374; 96361; 70450; 84484; 80048; 85025; 81003; 36415; 93005; J7030; J2405

== ENCOUNTER → 2024-11-27 | Outpatient (CLI) | payer OTHER, MEDICARE | END | disposition home or self-care (01) | LOC: RAH 09:47 | PROVIDERS: ATTEND Family Medicine | DX: Z12.31 Encounter for screening mammogram for malignant neoplasm of breast (principal) | CPT/HCPCS: 77067 ==